=== PATIENT | female | born 1985 | race Two or more races ===

== ENCOUNTER → 2020-10-08 | Outpatient (CLI) | payer BC | END | disposition home or self-care (01) | LOC: XYW 13:07 | PROVIDERS: ATTEND Internal Medicine | DX: S89.81XA Other specified injuries of right lower leg, initial encounter (principal); M17.11 Unilateral primary osteoarthritis, right knee; M25.861 Other specified joint disorders, right knee; X58.XXXA Exposure to other specified factors, initial encounter; Y93.89 Activity, other specified; Y92.89 Other specified places as the place of occurrence of the external cause; Y99.8 Other external cause status | CPT/HCPCS: 73721 ==

== ENCOUNTER 2021-04-13 23:12 | Emergency (ER) | payer BC ==
[~2021-04-13] VITALS: Ht 154.9 cm; Wt 44.0 kg
[2021-04-13 23:57] LABS: Basophils # (auto) 0 10 ^3/uL (0-0.2); Basophils % (auto) 0.4 % (0.0-2.0); Eosinophils # (auto) 0.1 10 ^3/uL (0-0.8); Eosinophils % (auto) 0.8 % (0.0-7.0); Hematocrit 38.2 % (36.0-46.0); Hemoglobin 13.2 g/dL (12.2-16.2); Lymphocytes % (auto) 28.2 % (10.0-50.0); Mean Corpuscular Hemoglobin 32.1 pg (28.0-32.0); Mean Corpuscular Hgb Conc. 34.7 g/dL (32.0-36.0); Mean Corpuscular Volume 92.7 fL (80.0-100.0); Monocytes # (auto) 0.7 10 ^3/uL (0-1.3); Monocytes % (auto) 9.4 % (0.0-12.0); Neutrophils # (auto) 4.3 10 ^3/uL (1.6-8.6); Neutrophils % (auto) 61.2 % (37.0-80.0); Nucleated Red Blood Cells % 0.1 %; Red Blood Cells 4.12 10^6/uL (4.0-5.20); Red Cell Distribution Width 12.7 % (11.8-14.3)
[2021-04-14 00:16] LABS: BUN/Creatinine Ratio 15.3; Calcium 8.8 mg/dL (8.5-10.1); Potassium 3.6 mmol/L (3.5-5.1)
[2021-04-14 01:00] VITALS: BP 105/68
== END 2021-04-14 01:01 | disposition home or self-care (01) ==
LOC: ER 23:15
DX: S09.90XA Unspecified injury of head, initial encounter (principal); W22.8XXA Striking against or struck by other objects, initial encounter; Y93.89 Activity, other specified; Y92.89 Other specified places as the place of occurrence of the external cause; Y99.8 Other external cause status
CPT/HCPCS: 36415; 80048; 85025

== ENCOUNTER → 2023-07-08 | Outpatient (CLI) | payer BC ==
[2023-07-08 12:41] LABS: Basophils # (auto) 0 10 ^3/uL (0-0.2); Basophils % (auto) 0.4 % (0.0-2.0); Eosinophils # (auto) 0 10 ^3/uL (0-0.8); Eosinophils % (auto) 0.5 % (0.0-7.0); Hematocrit 39.8 % (36.0-46.0); Hemoglobin 13.4 g/dL (12.2-16.2); Lymphocytes # (auto) 1.8 10 ^3/uL (0.4-5.4); Lymphocytes % (auto) 16.8 % (10.0-50.0); Mean Corpuscular Hemoglobin 31.4 pg (28.0-32.0); Mean Corpuscular Hgb Conc. 33.7 g/dL (32.0-36.0); Mean Corpuscular Volume 93.2 fL (80.0-100.0); Monocytes # (auto) 0.7 10 ^3/uL (0-1.3); Monocytes % (auto) 7.1 % (0.0-12.0); Neutrophils # (auto) 7.9 10 ^3/uL (1.6-8.6); Neutrophils % (auto) 75.2 % (37.0-80.0); Red Blood Cells 4.27 10^6/uL (4.0-5.20); Red Cell Distribution Width 13.2 % (11.8-14.3); White Blood Cell 10.5 10^3/uL (4.4-10.8)
[2023-07-08 12:52] LABS: Urine Bacteria NONE SEEN /hpf (None Seen); Urine Blood Negative /uL (Negative); Urine Clarity Clear (Clear); Urine Protein, UAD Negative (Negative); Urine Specific Gravity 1.009 (1.001-1.035); Urine Urobilinogen Normal (Negative); Urine WBC <1 /hpf (0 - 5); Urine pH 6.5 (5.0-8.0)
[2023-07-08 12:54] LABS: Urine Color Straw (Yellow)
[2023-07-08 13:15] LABS: Albumin 4.7 g/dL (3.2-4.8); Alkaline Phosphatase 52 U/L (46-116); Aspartate Aminotransferase 15 U/L (13-40); Cholesterol 161 mg/dL (< 200); Glucose 96 mg/dL (74-106); HDL Cholesterol 73 mg/dL (40-59); LDL Cholesterol 77 mg/dL (< 100); Triglycerides 68 mg/dL (< 150)
[2023-07-08 13:16] LABS: Bilirubin, Total 0.6 mg/dL (0.2-1.0); Total Protein 7.6 g/dL (5.7-8.2)
[2023-07-08 13:19] LABS: Thyroid Stimulating Hormone 2.51 uIU/mL (0.358-3.74)
[2023-07-08 13:21] LABS: Erythrocyte Sedimentation Rate 10 mm/hr (0-20)
[2023-07-08 13:51] LABS: Calcium 9.6 mg/dL (8.5-10.1)
[2023-07-08 13:52] LABS: Alanine Aminotransferase < 9 U/L (7-40)
[2023-07-08 13:53] LABS: Blood Urea Nitrogen 7 mg/dL (9-23)
[2023-07-08 14:01] LABS: Sodium 136 mmol/L (136-145)
[2023-07-08 14:02] LABS: Anion Gap 9 (5-15); Carbon Dioxide 24 mmol/L (20-30); Chloride 103 mmol/L (98-107); Potassium 3.9 mmol/L (3.5-5.1)
[2023-07-08 14:03] LABS: Uric Acid 3.7 mg/dL (3.1-7.8)
== END | disposition home or self-care (01) ==
LOC: LAB 12:32
PROVIDERS: ATTEND Internal Medicine
DX: O09.90 Supervision of high risk pregnancy, unspecified, unspecified trimester (principal); M79.676 Pain in unspecified toe(s); Z3A.00 Weeks of gestation of pregnancy not specified
CPT/HCPCS: 36415; 80053; 80061; 81001; 84439; 84443; 84550; 84702; 85025; 85652

== ENCOUNTER → 2023-09-01 | Outpatient (CLI) | payer BC ==
[2023-09-01 16:08] LABS: Basophils # (auto) 0 10 ^3/uL (0-0.2); Basophils % (auto) 0.4 % (0.0-2.0); Eosinophils # (auto) 0.1 10 ^3/uL (0-0.8); Eosinophils % (auto) 0.7 % (0.0-7.0); Hematocrit 39.9 % (36.0-46.0); Hemoglobin 13.5 g/dL (12.2-16.2); Lymphocytes # (auto) 1.4 10 ^3/uL (0.4-5.4); Lymphocytes % (auto) 14.3 % (10.0-50.0); Mean Corpuscular Hemoglobin 31.5 pg (28.0-32.0); Mean Corpuscular Hgb Conc. 33.8 g/dL (32.0-36.0); Mean Corpuscular Volume 93.1 fL (80.0-100.0); Monocytes # (auto) 0.7 10 ^3/uL (0-1.3); Monocytes % (auto) 7.1 % (0.0-12.0); Neutrophils # (auto) 7.8 10 ^3/uL (1.6-8.6); Neutrophils % (auto) 77.5 % (37.0-80.0); Red Blood Cells 4.28 10^6/uL (4.0-5.20); Red Cell Distribution Width 12.7 % (11.8-14.3); White Blood Cell 10.1 10^3/uL (4.4-10.8)
[2023-09-01 17:00] LABS: Amphetamine Screen, Urine Neg (NEGATIVE); Barbiturate Scree,Urine Neg (NEGATIVE); Benzodiazephine Screen, Urine Neg (NEGATIVE); Cocaine Screen, Urine Neg (NEGATIVE); Opiate Scree,Urine Neg (NEGATIVE); Phencyclidine Screen, Urine Neg (NEGATIVE)
[2023-09-01 17:01] LABS: Cannabinoid Screen, Urine Neg (NEGATIVE)
[2023-09-02 07:06] LABS: RPR Non Reactive (Non Reactive)
[2023-09-02 09:11] LABS: Hepatitis B Surface Antibody Positive (Negative)
[2023-09-02 09:22] LABS: Hepatitis B Surface Antigen Negative (Negative)
[2023-09-02 10:06] LABS: Treponema Pallidum Ab LC Non Reactive (Non Reactive)
[2023-09-02 23:07] LABS: Chlamydia Trachomatis, NAA Negative (Negative); Neisseria gonorrhoeae, NAA Negative (Negative)
== END | disposition home or self-care (01) ==
LOC: LAB 15:38
PROVIDERS: ATTEND Obstetrics & Gynecology
DX: Z34.80 Encounter for supervision of other normal pregnancy, unspecified trimester (principal); Z36.0 Encounter for antenatal screening for chromosomal anomalies; N39.0 Urinary tract infection, site not specified; Z3A.00 Weeks of gestation of pregnancy not specified
CPT/HCPCS: 36415; 80307; 83036; 84112; 84144; 84702; 85025; 86592; 86703; 86706; 86762; 86850; 86900; 86901; 87086; 87340

== ENCOUNTER 2024-01-13 08:40 | Observation (INO) | payer BC ==
[~2024-01-13] VITALS: Ht 154.9 cm; Wt 53.1 kg
[2024-01-13] MEDS ORDERED: BETAMETHASONE ACET (30mg/5ml) 5ml Vial 6mg/ml IM ONE (08:45)
[2024-01-13] MEDS ORDERED: TERBUTALINE SULFATE 1 MG/ML 1ML VIAL SC ONE (08:45)
[2024-01-13] MEDS: TERBUTALINE SULFATE 1 MG/ML 1ML VIAL SC SCH (08:56)
[2024-01-13] MEDS: LACTATED RINGER'S 1,000 ML IV ONE (09:17)
[2024-01-13] MEDS ORDERED: PREN-96 PO (11:46)
== END 2024-01-13 12:20 | disposition home or self-care (01) ==
LOC: UNDOADMOB 08:40 → LDRP 08:40
PROVIDERS: ADMIT Obstetrics & Gynecology; ATTEND Obstetrics & Gynecology
DX: O60.03 Preterm labor without delivery, third trimester (principal); Z3A.33 33 weeks gestation of pregnancy
CPT/HCPCS: 59025; 76815; 81002; 82962; 94760; 96360; 96361; 96372; G0378; J3105

== ENCOUNTER 2024-01-19 13:01 | Observation (INO) | payer BC ==
[~2024-01-19] VITALS: Ht 154.9 cm; Wt 56.7 kg
[~2024-01-19 13:01] MED LIST: PREN-96 PO
[2024-01-19] MEDS: TERBUTALINE SULFATE 1 MG/ML 1ML VIAL SC SCH (14:12)
[2024-01-19] MEDS: LACTATED RINGER'S 1,000 ML IV ONE (14:14)
[2024-01-19] MEDS: BETAMETHASONE ACET (30mg/5ml) 5ml Vial 6mg/ml IM ONE (14:16)
== END 2024-01-19 15:38 | disposition home or self-care (01) ==
LOC: UNDOADMOB 13:01 → LDRP 13:01
PROVIDERS: ADMIT Obstetrics & Gynecology; ATTEND Obstetrics & Gynecology
DX: O60.03 Preterm labor without delivery, third trimester (principal); O36.8130 Decreased fetal movements, third trimester, not applicable or unspecified; O26.853 Spotting complicating pregnancy, third trimester; Z3A.34 34 weeks gestation of pregnancy
CPT/HCPCS: 59025; 76818; 81002; 94760; 96360; 96361; 96372; G0378; J0702; J3105

== ENCOUNTER 2024-01-20 15:09 | Observation (INO) | payer BC ==
[~2024-01-20] VITALS: Ht 154.9 cm; Wt 53.1 kg
[2024-01-20] MEDS: BETAMETHASONE ACET (30mg/5ml) 5ml Vial 6mg/ml IM ONE (15:44)
== END 2024-01-20 16:07 | disposition home or self-care (01) ==
LOC: UNDOADMOB 15:09 → LDRP 15:09
PROVIDERS: ADMIT Obstetrics & Gynecology; ATTEND Obstetrics & Gynecology
DX: O60.03 Preterm labor without delivery, third trimester (principal); Z3A.34 34 weeks gestation of pregnancy
CPT/HCPCS: 59025; 81002; 94760; 96372; G0378

== ENCOUNTER 2024-01-26 09:28 | Observation (INO) | payer BC | END 2024-01-26 17:06 | disposition home or self-care (01) | LOC: LDRP 15:06 → UNDOADMOB 15:06 → LDRP 15:10 | PROVIDERS: ADMIT Obstetrics & Gynecology; ATTEND Obstetrics & Gynecology | DX: O60.03 Preterm labor without delivery, third trimester (principal); O32.1XX0 Maternal care for breech presentation, not applicable or unspecified; O09.523 Supervision of elderly multigravida, third trimester; Z3A.35 35 weeks gestation of pregnancy | CPT/HCPCS: 59025; 76818; 81002; 94760; G0378 ==

== ENCOUNTER → 2024-02-01 | Outpatient (CLI) | payer BC ==
[2024-02-01 14:02] LABS: Basophils # (auto) 0 10 ^3/uL (0-0.2); Basophils % (auto) 0.3 % (0.0-2.0); Eosinophils # (auto) 0.1 10 ^3/uL (0-0.8); Eosinophils % (auto) 0.6 % (0.0-7.0); Hematocrit 34.9 % (36.0-46.0); Hemoglobin 11.5 g/dL (12.2-16.2); Lymphocytes # (auto) 1.6 10 ^3/uL (0.4-5.4); Mean Corpuscular Hemoglobin 30.9 pg (28.0-32.0); Mean Corpuscular Hgb Conc. 32.9 g/dL (32.0-36.0); Mean Corpuscular Volume 93.9 fL (80.0-100.0); Monocytes % (auto) 8.5 % (0.0-12.0); Neutrophils # (auto) 9.6 10 ^3/uL (1.6-8.6); Neutrophils % (auto) 77.6 % (37.0-80.0); Red Blood Cells 3.72 10^6/uL (4.0-5.20); Red Cell Distribution Width 13.5 % (11.8-14.3); White Blood Cell 12.3 10^3/uL (4.4-10.8)
[2024-02-02 07:06] LABS: RPR Non Reactive (Non Reactive)
[2024-02-02 17:07] LABS: Chlamydia Trachomatis, NAA Negative (Negative); Neisseria gonorrhoeae, NAA Negative (Negative)
== END | disposition home or self-care (01) ==
LOC: LAB 13:44
PROVIDERS: ATTEND Obstetrics & Gynecology
DX: Z34.80 Encounter for supervision of other normal pregnancy, unspecified trimester (principal); Z72.51 High risk heterosexual behavior; Z3A.00 Weeks of gestation of pregnancy not specified
CPT/HCPCS: 36415; 85025; 86592

== ENCOUNTER 2024-02-02 14:57 | Observation (INO) | payer BC | END 2024-02-02 16:33 | disposition home or self-care (01) | LOC: LDRP 15:14 → UNDOADMOB 15:14 → LDRP 15:30 | PROVIDERS: ADMIT Obstetrics & Gynecology; ATTEND Obstetrics & Gynecology | DX: O60.03 Preterm labor without delivery, third trimester (principal); Z3A.36 36 weeks gestation of pregnancy; Z79.899 Other long term (current) drug therapy | CPT/HCPCS: 59025; 76818; 81002; 82948; 94760; G0378 ==

== ENCOUNTER 2024-02-08 10:04 | Observation (INO) | payer BC | END 2024-02-08 15:30 | disposition home or self-care (01) | LOC: UNDOADMOB 12:55 → LDRP 12:55 → UNDODISOB 15:30 | PROVIDERS: ADMIT Obstetrics & Gynecology; ATTEND Obstetrics & Gynecology | DX: O32.1XX0 Maternal care for breech presentation, not applicable or unspecified (principal); O36.5930 Maternal care for other known or suspected poor fetal growth, third trimester, not applicable or unspecified; O26.893 Other specified pregnancy related conditions, third trimester; N89.8 Other specified noninflammatory disorders of vagina; Z3A.37 37 weeks gestation of pregnancy | CPT/HCPCS: 59025; 76818; 81002; 94760; G0378 ==

== ENCOUNTER 2024-02-11 08:43 | Observation (INO) | payer BC | END 2024-02-11 12:17 | disposition home or self-care (01) | LOC: LDRP 10:17 | PROVIDERS: ADMIT Obstetrics & Gynecology; ATTEND Obstetrics & Gynecology | DX: O32.1XX0 Maternal care for breech presentation, not applicable or unspecified (principal); O09.523 Supervision of elderly multigravida, third trimester; Z3A.37 37 weeks gestation of pregnancy | CPT/HCPCS: 59025; 76818; 81002; 94760; G0378 ==

== ENCOUNTER 2024-02-18 08:20 | Observation (INO) | payer BC | END 2024-02-18 12:18 | disposition home or self-care (01) | LOC: LDRP 10:25 → UNDOADMOB 10:25 → LDRP 10:37 → UNDODISOB 12:18 | PROVIDERS: ADMIT Obstetrics & Gynecology; ATTEND Obstetrics & Gynecology | DX: O36.5930 Maternal care for other known or suspected poor fetal growth, third trimester, not applicable or unspecified (principal); O32.1XX0 Maternal care for breech presentation, not applicable or unspecified; Z3A.39 39 weeks gestation of pregnancy | CPT/HCPCS: 59025; 76818; 81002; 94760; G0378 ==

== ENCOUNTER 2024-02-20 03:19 | Inpatient (IN) | payer BC ==
[2024-02-18 12:06] LABS: Alkaline Phosphatase 160 U/L (46-116); Anion Gap 5 (5-15); Aspartate Aminotransferase 19 U/L (13-40); Blood Urea Nitrogen 8 mg/dL (9-23); Calcium 9.2 mg/dL (8.5-10.1); Carbon Dioxide 25 mmol/L (20-30); Chloride 106 mmol/L (98-107); Glucose 60 mg/dL (74-106); Potassium 4.1 mmol/L (3.5-5.1); Sodium 136 mmol/L (136-145)
[2024-02-18 12:07] LABS: Albumin 3.6 g/dL (3.2-4.8); Bilirubin, Total 0.3 mg/dL (0.2-1.0); Total Protein 6.2 g/dL (5.7-8.2)
[2024-02-18 12:12] LABS: Alanine Aminotransferase < 9 U/L (7-40)
[2024-02-18 12:18] LABS: Basophils # (auto) 0 10 ^3/uL (0-0.2); Basophils % (auto) 0.2 % (0.0-2.0); Eosinophils # (auto) 0.1 10 ^3/uL (0-0.8); Eosinophils % (auto) 1.3 % (0.0-7.0); Hematocrit 34.9 % (36.0-46.0); Hemoglobin 11.8 g/dL (12.2-16.2); Lymphocytes # (auto) 1.6 10 ^3/uL (0.4-5.4); Lymphocytes % (auto) 17.9 % (10.0-50.0); Mean Corpuscular Hemoglobin 31.4 pg (28.0-32.0); Mean Corpuscular Hgb Conc. 33.7 g/dL (32.0-36.0); Mean Corpuscular Volume 93.3 fL (80.0-100.0); Monocytes # (auto) 0.9 10 ^3/uL (0-1.3); Monocytes % (auto) 9.8 % (0.0-12.0); Neutrophils # (auto) 6.3 10 ^3/uL (1.6-8.6); Neutrophils % (auto) 70.8 % (37.0-80.0); Red Blood Cells 3.75 10^6/uL (4.0-5.20); Red Cell Distribution Width 14.1 % (11.8-14.3); White Blood Cell 8.9 10^3/uL (4.4-10.8)
[2024-02-18 12:32] LABS: INR 0.87 (0.9-1.15); Prothrombin Time 9.3 sec (9.3-11.8)
[2024-02-19 08:07] LABS: RPR Non Reactive (Non Reactive)
[~2024-02-20] VITALS: Ht 154.9 cm; Wt 52.2 kg
[2024-02-20] MEDS: LACTATED RINGER'S 1,000 ML IV ONE (04:15)
[2024-02-20] MEDS ORDERED: MORPHINE SULF PF 5 MG/10 ML VIAL ONE (04:19)
[2024-02-20] MEDS ORDERED: fentaNYL CITRATE 100 MCG/2 ML VL ONE (04:19)
[2024-02-20] MEDS ORDERED: ONDANSETRON HCL 4 MG/2 ML VIAL ONE (04:20)
[2024-02-20] MEDS ORDERED: OXYTOCIN 10UNIT/ML 1ML VIAL ONE (04:21)
[2024-02-20 04:30] LABS: Amphetamine Screen, Urine Neg (NEGATIVE); Barbiturate Scree,Urine Neg (NEGATIVE); Benzodiazephine Screen, Urine Neg (NEGATIVE); Cannabinoid Screen, Urine Neg (NEGATIVE); Cocaine Screen, Urine Neg (NEGATIVE); Opiate Scree,Urine Neg (NEGATIVE); Phencyclidine Screen, Urine Neg (NEGATIVE)
[2024-02-20] MEDS: ceFAZolin 2 GM/D5W50ml 50 ML IV ONE (04:33)
[2024-02-20 04:58] LABS: Urine Bacteria FEW /hpf (None Seen); Urine Blood Negative /uL (Negative); Urine Clarity Clear (Clear); Urine Color Light-Yellow (Yellow); Urine Hyaline Cast FEW /lpf (0 - 2); Urine Mucus FEW (None Seen); Urine Protein, UAD Negative (Negative); Urine Specific Gravity 1.012 (1.001-1.035); Urine Urobilinogen Normal (Negative); Urine WBC 1 /hpf (0 - 5)
[2024-02-20 05:38] VITALS: RESP 14; O2SAT 100
[2024-02-20] MEDS ORDERED: diphenhdrAMINE HCL 50 MG/1 ML VL IV PRN (06:00)
[2024-02-20] MEDS ORDERED: NALOXONE HCL 0.4 MG/ML VIAL IV PRN (06:00)
[2024-02-20] MEDS ORDERED: HYDROmorphone HCL 2 MG/ML VL/or syr IV PRN (06:00)
[2024-02-20] MEDS ORDERED: ONDANSETRON HCL 4 MG/2 ML VIAL IV PRN ×2 (06:00→10:15)
[2024-02-20 07:06] VITALS: PULSE 78; RESP 16; O2SAT 98
[2024-02-20] MEDS ORDERED: LACTATED RINGER'S 1,000 ML IV SCH (10:15)
[2024-02-20] MEDS: ceFAZolin 1GM/50ML 50 ML IV SCH (13:29)
[2024-02-20] MEDS: ACETAMINOPHEN IV 1000 MG/100ML (10MG/ML) IV PRN (15:40)
[2024-02-20 19:00] VITALS: BP 94/50; PULSE 67; RESP 16; TEMP 98.4; O2SAT 98
[2024-02-20] MEDS: HYDROmorphone HCL 2 MG/ML VL/or syr IV PRN (21:00)
[2024-02-20 23:00] VITALS: BP 99/43; PULSE 60; RESP 16; TEMP 99.2; O2SAT 97
[2024-02-20] MEDS: PHISODERM TOP SOLN 240ML BTL TOP ONE (23:59)
[2024-02-21] MEDS: ACETAMINOPHEN IV 1000 MG/100ML (10MG/ML) IV PRN (00:56)
[2024-02-21 03:00] VITALS: BP 93/47; PULSE 58; RESP 16; TEMP 98.6; O2SAT 96
[2024-02-21 06:45] VITALS: BP 100/50; PULSE 60; RESP 16; TEMP 98.5; O2SAT 95
[2024-02-21] MEDS ORDERED: BISACODYL 10 MG RECT SUPP PR PRN (07:15)
[2024-02-21] MEDS ORDERED: HYDROcodone-ACET 5/325MG TAB PO PRN (07:15)
[2024-02-21] MEDS: HYDROcodone-ACET 5/325MG TAB PO PRN (08:26)
[2024-02-21] MEDS: DOCUSATE SOD 100 MG CAP PO SCH (10:02)
[2024-02-21] MEDS: DOCUSATE CALCIUM 240 MG CAP PO SCH (10:02)
[2024-02-21] MEDS: IBUPROFEN 800 MG TAB PO PRN (10:40)
[2024-02-21 10:56] VITALS: BP 98/47; PULSE 60; RESP 17; TEMP 98.6; O2SAT 96
[2024-02-21] MEDS: SIMETHICONE 80 MG CHEWABLE TABLET PO SCH (11:55)
[2024-02-21 15:30] VITALS: BP 97/82; PULSE 68; RESP 17; TEMP 98.5; O2SAT 98
[2024-02-21 19:20] VITALS: BP 90/47; PULSE 65; RESP 17; TEMP 98.2; O2SAT 98
[2024-02-21 22:40] VITALS: BP 90/51; PULSE 75; RESP 16; TEMP 98.2; O2SAT 99
[2024-02-22] MEDS ORDERED: IBUP-1455 PO (03:07)
[2024-02-22] MEDS ORDERED: HYDR-4902 PO (03:07)
[2024-02-22 03:20] VITALS: BP 98/45; PULSE 67; RESP 16; TEMP 98.5; O2SAT 98
[2024-02-22 07:01] VITALS: BP 90/47; PULSE 62; RESP 17; TEMP 98.6; O2SAT 98
[2024-02-22] MEDS ORDERED: DOCU-94 PO (07:36)
[2024-02-22 10:55] VITALS: BP 93/50; PULSE 61; RESP 17; TEMP 97.9; O2SAT 98
[2024-02-22 11:49] LABS: Basophils # (auto) 0 10 ^3/uL (0-0.2); Basophils % (auto) 0.1 % (0.0-2.0); Eosinophils # (auto) 0.2 10 ^3/uL (0-0.8); Eosinophils % (auto) 1.2 % (0.0-7.0); Hematocrit 38.3 % (36.0-46.0); Hemoglobin 12.6 g/dL (12.2-16.2); Lymphocytes % (auto) 12.6 % (10.0-50.0); Mean Corpuscular Hemoglobin 31.1 pg (28.0-32.0); Mean Corpuscular Volume 94.4 fL (80.0-100.0); Monocytes # (auto) 0.9 10 ^3/uL (0-1.3); Monocytes % (auto) 5.9 % (0.0-12.0); Neutrophils # (auto) 12.5 10 ^3/uL (1.6-8.6); Neutrophils % (auto) 80.2 % (37.0-80.0); Red Blood Cells 4.05 10^6/uL (4.0-5.20); Red Cell Distribution Width 14.4 % (11.8-14.3); White Blood Cell 15.6 10^3/uL (4.4-10.8)
[2024-02-22 19:07] LABS: Treponema pallidum Ab (FTA-Ab) Non Reactive (Non Reactive)
== END 2024-02-22 14:45 | disposition home or self-care (01) | DRG 785 ==
LOC: UNDOADMIN 03:19 → LDRP 03:19
PROVIDERS: ADMIT Obstetrics & Gynecology; ATTEND Obstetrics & Gynecology
PROC: 10D00Z1 Extraction of Products of Conception, Low, Open Approach (ICD-10-PCS; 2024-02-20)
PROC: 0UB70ZZ Excision of Bilateral Fallopian Tubes, Open Approach (ICD-10-PCS; principal; 2024-02-20 04:37)
DX: O32.1XX0 Maternal care for breech presentation, not applicable or unspecified (principal); Z3A.39 39 weeks gestation of pregnancy; Z37.0 Single live birth; Z30.2 Encounter for sterilization
CPT/HCPCS: 36415; 59025; 76815; 80053; 80307; 81001; 81002; 85025; 85610; 85730; 86592; 86803; 86850; 86900; 86901; 94760; 96360; 96361; 96365; 96366; G0378; J0131; J2405

== ENCOUNTER → 2024-08-31 | Outpatient (CLI) | payer BC | END | disposition home or self-care (01) | LOC: LAB 12:37 | PROVIDERS: ATTEND Radiology Diagnostic Radiology | DX: D24.1 Benign neoplasm of right breast (principal); N63.15 Unspecified lump in the right breast, overlapping quadrants ==

== ENCOUNTER → 2024-10-11 | Outpatient (CLI) | payer BC ==
[2024-10-11 09:54] LABS: Urine Bacteria None Seen /hpf (None Seen)
[2024-10-11 10:04] LABS: Basophils # (auto) 0 10 ^3/uL (0-0.2); Basophils % (auto) 0.8 % (0.0-2.0); Eosinophils # (auto) 0.1 10 ^3/uL (0-0.8); Eosinophils % (auto) 2.5 % (0.0-7.0); Hematocrit 41.4 % (36.0-46.0); Hemoglobin 13.5 g/dL (12.2-16.2); Lymphocytes # (auto) 1.6 10 ^3/uL (0.4-5.4); Lymphocytes % (auto) 31.6 % (10.0-50.0); Mean Corpuscular Hemoglobin 29.9 pg (28.0-32.0); Mean Corpuscular Hgb Conc. 32.6 g/dL (32.0-36.0); Mean Corpuscular Volume 91.8 fL (80.0-100.0); Monocytes # (auto) 0.5 10 ^3/uL (0-1.3); Monocytes % (auto) 9.6 % (0.0-12.0); Neutrophils # (auto) 2.8 10 ^3/uL (1.6-8.6); Neutrophils % (auto) 55.5 % (37.0-80.0); Nucleated Red Blood Cells % 0.1 %; Platelet Count (auto) 245 10^3/uL (140-450); Red Blood Cells 4.51 10^6/uL (4.0-5.20); Red Cell Distribution Width 13.3 % (11.8-14.3); White Blood Cell 5.1 10^3/uL (4.4-10.8)
[2024-10-11 10:09] LABS: Urine Blood Negative /uL (Negative); Urine Clarity Clear (Clear); Urine Color Light-Yellow (Yellow); Urine Protein, UAD Negative (Negative); Urine Squamous Epithelial Cell None Seen /hpf (<5); Urine Urobilinogen Normal (Negative); Urine WBC < 1 /HPF (0-5); Urine pH 5.5 (5.0-9.0)
[2024-10-11 11:17] LABS: Erythrocyte Sedimentation Rate 9 mm/hr (0-20)
[2024-10-11 11:54] LABS: Alanine Aminotransferase 10 U/L (7-40); Anion Gap 7 (5-15); BUN/Creatinine Ratio 11.8 (10.0-20.0); Blood Urea Nitrogen 9 mg/dL (9-23); Carbon Dioxide 28 mmol/L (20-31); Chloride 105 mmol/L (98-107); Glucose 92 mg/dL (74-106); Potassium 3.5 mmol/L (3.5-5.1); Sodium 140 mmol/L (136-145)
[2024-10-11 11:55] LABS: Aspartate Aminotransferase 14 U/L (13-40)
[2024-10-11 11:56] LABS: Albumin 4.6 g/dL (3.2-4.8); Bilirubin, Total 0.6 mg/dL (0.2-1.0); Total Protein 7.3 g/dL (5.7-8.2)
[2024-10-11 13:07] LABS: Alkaline Phosphatase 72 U/L (46-116)
[2024-10-11 13:39] LABS: LDL Cholesterol 92 mg/dL (< 100); Triglycerides 67 mg/dL (< 150)
[2024-10-11 13:40] LABS: Cholesterol 178 mg/dL (< 200)
[2024-10-11 13:47] LABS: HDL Cholesterol 80 mg/dL (40-59)
== END | disposition home or self-care (01) ==
LOC: LAB 09:34
PROVIDERS: ATTEND Internal Medicine
DX: C65.9 Malignant neoplasm of unspecified renal pelvis (principal); N60.11 Diffuse cystic mastopathy of right breast; M25.50 Pain in unspecified joint
CPT/HCPCS: 36415; 80053; 80061; 81001; 83540; 84439; 84443; 85025; 85652

== ENCOUNTER → 2024-11-22 | Outpatient (CLI) | payer BC ==
[2024-11-22 12:14] LABS: Urine Bacteria None Seen /hpf (None Seen)
[2024-11-22 12:40] LABS: Urine Blood TRACE /uL (Negative); Urine Clarity Clear (Clear); Urine Color Light-Yellow (Yellow); Urine Protein, UAD Negative (Negative); Urine Specific Gravity 1.014 (1.001-1.035); Urine Squamous Epithelial Cell FEW /hpf (<5); Urine Urobilinogen Normal (Negative); Urine WBC < 1 /HPF (0-5); Urine pH 6.5 (5.0-9.0)
[2024-11-22 12:44] LABS: Basophils # (auto) 0 10 ^3/uL (0-0.2); Eosinophils # (auto) 0.1 10 ^3/uL (0-0.8); Eosinophils % (auto) 2.1 % (0.0-7.0); Hematocrit 40.4 % (36.0-46.0); Hemoglobin 13.3 g/dL (12.2-16.2); Lymphocytes # (auto) 1.3 10 ^3/uL (0.4-5.4); Lymphocytes % (auto) 29.5 % (10.0-50.0); Mean Corpuscular Hemoglobin 30.3 pg (28.0-32.0); Mean Corpuscular Hgb Conc. 32.9 g/dL (32.0-36.0); Mean Corpuscular Volume 92.1 fL (80.0-100.0); Monocytes # (auto) 0.5 10 ^3/uL (0-1.3); Monocytes % (auto) 10.6 % (0.0-12.0); Neutrophils # (auto) 2.4 10 ^3/uL (1.6-8.6); Neutrophils % (auto) 56.8 % (37.0-80.0); Nucleated Red Blood Cells % 0.1 %; Platelet Count (auto) 247 10^3/uL (140-450); Red Blood Cells 4.39 10^6/uL (4.0-5.20); Red Cell Distribution Width 13.1 % (11.8-14.3); White Blood Cell 4.3 10^3/uL (4.4-10.8)
[2024-11-22 12:47] LABS: Alanine Aminotransferase 12 U/L (7-40); Albumin 4.7 g/dL (3.2-4.8); Alkaline Phosphatase 67 U/L (46-116); Anion Gap 8 (5-15); Aspartate Aminotransferase 20 U/L (13-40); BUN/Creatinine Ratio 9.1 (10.0-20.0); Calcium 9.7 mg/dL (8.7-10.4); Carbon Dioxide 27 mmol/L (20-31); Chloride 105 mmol/L (98-107); Glucose 98 mg/dL (74-106); LDL Cholesterol 88 mg/dL (< 100); Sodium 140 mmol/L (136-145); Total Protein 7.5 g/dL (5.7-8.2); Triglycerides 59 mg/dL (< 150)
[2024-11-22 12:48] LABS: Bilirubin, Total 0.8 mg/dL (0.2-1.0); Blood Urea Nitrogen 8 mg/dL (9-23); Cholesterol 177 mg/dL (< 200); HDL Cholesterol 73 mg/dL (40-59)
[2024-11-22 13:09] LABS: Erythrocyte Sedimentation Rate 8 mm/hr (0-20)
== END | disposition home or self-care (01) ==
LOC: LAB 11:49
PROVIDERS: ATTEND Internal Medicine
DX: N60.11 Diffuse cystic mastopathy of right breast (principal); D24.1 Benign neoplasm of right breast; Z80.3 Family history of malignant neoplasm of breast
CPT/HCPCS: 36415; 80053; 80061; 81001; 84439; 84443; 85025; 85652